=== PATIENT | female | born 1960 | race African-American/Black ===

== ENCOUNTER → 2017-06-01 | Outpatient (CLI) | payer OTHER ==
--- NOTE | 2017-06-01 16:03 | RAD ---
DATE: 06/01/2017 EXAM: MAMMO JAYRO SCREENING BILATERAL HISTORY: Routine screening COMPARISON: None available This study was interpreted with the benefit of Computerized Aided Detection (CAD). The breast parenchyma shows scattered fibroglandular densities. Breast parenchyma level B. FINDINGS: 2-D and 3-D imaging was performed in CC and MLO projections. There are several tiny smooth nodules in both breasts as best demonstrated on the tomograms. One of these nodules in the right breast at approximately the 12:00 location demonstrates microlobulated margins as best seen on CCA jayro image #45. This is located approximately 6 cm posterior to the nipple. This probably corresponds to a small nodular opacity seen on right oblique tomogram #50. No suspicious microcalcifications are seen. IMPRESSION: 1. Scattered small benign-appearing nodules in both breasts. 2. One nodule at the 12:00 location in the right breast demonstrates mildly suspicious margins. A targeted right breast ultrasound is suggested for further evaluation. BI-RADS CATEGORY: 0 INCOMPLETE: NEEDS ADDITIONAL IMAGING EVALUATION AND/OR PRIOR MAMMOGRAMS FOR COMPARISON. RECOMMENDED FOLLOW-UP: ADD ADDITIONAL IMAGING PQRS compliance statement: Patient information was entered into a reminder system with a target due date for the next mammogram. Mammography is a sensitive method for finding small breast cancers, but it does not detect them all and is not a substitute for careful clinical examination. A negative mammogram does not negate a clinically suspicious finding and should not result in delay in biopsying a clinically suspicious abnormality. "Our facility is accredited by the [employer] Mammography Program."
== END | disposition home or self-care (01) ==
LOC: MAMMO 14:54
PROVIDERS: ATTEND Nurse Practitioner Family
DX: Z12.31 Encounter for screening mammogram for malignant neoplasm of breast (principal); N63 Unspecified lump in breast
CPT/HCPCS: 77063; G0202; 77067

== ENCOUNTER → 2017-06-08 | Outpatient (CLI) | payer OTHER ==
--- NOTE | 2017-06-08 16:18 | RAD ---
Right breast ultrasound, 06/08/2017: History: Right breast nodule Previous mammograms demonstrated a microlobulated nodule in the right breast at the 12:00 location. A targeted ultrasound exam of that region demonstrates a 6 x 4 x 2 mm nodule approximate 6 cm from the nipple at the 12:00 location. It is wider than tall. There are some internal echoes. There is mild posterior acoustic enhancement. The appearance suggests a complicated cyst. This probably corresponds to the mammographic nodule, however, that cannot be stated with certainty. No highly suspicious nodule is seen in this region. IMPRESSION: Probably benign right breast nodule. Considering the presence of multiple bilateral nodules on the baseline mammograms, 3-D mammographic follow-up beginning in 6 months and then at yearly intervals is suggested to establish stability. BI-RADS 3-probably benign findings
== END | disposition home or self-care (01) ==
LOC: US 14:51
PROVIDERS: ATTEND Nurse Practitioner Family
DX: N63 Unspecified lump in breast (principal)
CPT/HCPCS: 76641

== ENCOUNTER 2017-12-25 15:35 | Emergency (ER) | payer OTHER ==
[~2017-12-25] VITALS: Ht 165.1 cm; Wt 96.2 kg
[2017-12-25 15:48] VITALS: BP 155/93
[2017-12-25] MEDS ORDERED: DICY20TA3 PO (16:14)
[2017-12-25] MEDS ORDERED: PROM25SU32 RC (16:14)
[2017-12-25] MEDS ORDERED: ONDA4TAB10 PO (16:14)
[2017-12-25] MEDS ORDERED: ONDANSETRON ODT 4 MG TAB.RAPDIS PO ONE (16:15)
[2017-12-25] MEDS ORDERED: DICYCLOMINE HCL 20 MG TABLET PO ONE (16:15)
--- NOTE | 2017-12-25 16:18 | PHYS DOC ---
General Chief Complaint: NAUSEA/VOMITING/DIARRHEA Stated Complaint: NAUSEA/VOMITING Time Seen by MD: 15:38 Source: patient Exam Limitations: no limitations Problems: History of Present Illness Initial Comments 57-year-old female comes to the ED "I have a stomach virus." Patient states that her son was seen at [facility] last week with gastroenteritis, she says last night she became achy and had several episodes of emesis and today has had a few episodes of emesis and loose watery stools. No blood in stools or emesis no travel or bad food exposure and no pre-arrival treatment. She's been achy but denies any fevers she would like some medications to stop vomiting. She's been able to hold liquids down and is willing to hydrate orally at home. Timing/Duration: 24 hours Severity: moderate Modifying Factors: worse with eating, improves with rest Associated Symptoms: diaphoresis, malaise, nausea/vomiting, other Allergies: Coded Allergies: No Known Drug Allergies (Unverified , 12/25/17) Past Medical History Medical History: diabetes, hypertension Surgical History: noncontributory Social History Smoker: cigarettes Alcohol: none Drugs: none Review of Systems Constitutional: see HPI Respiratory: denies cough, denies shortness of breath Cardiovascular: denies chest pain, denies palpitations Gastrointestinal: see HPI Genitourinary: denies dysuria, denies frequency, denies hematuria Musculoskeletal: see HPI Hematologic/Lymphatic: denies blood clots, denies easy bruising Physical Exam General Appearance: WD/WN, no apparent distress Eyes: bilateral eye normal inspection, bilateral eye PERRL, bilateral eye EOMI Ear, Nose, Throat: hearing grossly normal, normal ENT inspection, normal pharynx Neck: non-tender, supple Respiratory: normal breath sounds, no respiratory distress Cardiovascular: normal peripheral pulses, regular rate, rhythm Gastrointestinal: normal bowel sounds, non tender, soft, no organomegaly Back: no CVA tenderness, no vertebral tenderness Extremities: non-tender, normal inspection Neurologic/Psychiatric: alert, oriented x 3 Skin: normal color, warm/dry Orders, Labs, Meds I discussed signs and symptoms to monitor as well as indications for urgent return to the department. Discussed oral hydration prescription and over-the- counter medications and her questions were answered. She expressed agreement and understanding of treatment plan. Departure Time of Disposition: 16:15 Disposition: 01 HOME, SELF-CARE Diagnosis: gastroenteritis likely viral Condition: GOOD Patient Instructions: Viral Gastroenteritis, [id number] Additional Instructions: Off work through December 28. Aggressive hydration with Gatorade and water. Clear liquids today, advance diet slowly tomorrow as tolerated. [id number] Tylenol and ibuprofen as needed. Prescription: Zofran ODT, Phenergan suppository, dicyclomine Follow-up with your doctor in 5-7 days if not better. Return to ED with new or changing symptoms. DANNIE LUIS DO Dec 25, 2017 16:18
== END 2017-12-25 16:26 | disposition home or self-care (01) ==
LOC: ER 15:35
DX: K52.9 Noninfective gastroenteritis and colitis, unspecified (principal); I10 Essential (primary) hypertension; E11.9 Type 2 diabetes mellitus without complications; F17.210 Nicotine dependence, cigarettes, uncomplicated
CPT/HCPCS: 99283; Q0162

== ENCOUNTER → 2018-02-08 | Outpatient (CLI) | payer OTHER ==
[~2018-02-08] MED LIST: DICY20TA3 PO; ONDA4TAB10 PO; PROM25SU32 RC
--- NOTE | 2018-02-08 15:54 | RAD ---
DATE: 02/08/2018 EXAM: MAMMO JAYRO PHYLLISG RT, BREAST RIGHT HISTORY: Follow-up nodule COMPARISON: 06/01/2017 This study was interpreted with the benefit of Computerized Aided Detection (CAD). The breast parenchyma shows scattered fibroglandular densities. Breast parenchyma level B. FINDINGS: The small nodule seen at the 12:00 location in the right breast on the previous study is again identified, best seen on CC jayro image #41. It measures 6 mm and has shown no definite change in size. No new right breast opacities are seen. No suspicious microcalcifications are evident. Right breast ultrasound, 02/08/2018: A targeted ultrasound exam of the right breast was performed centered at the 12:00 location. Approximately 6 cm from the nipple at the 12:00 location there is a small partially cystic nodule. It currently measures 3-4 mm in greatest diameter. It is of similar size, or perhaps slightly smaller than on the 06/08/2017 exam. It is wider than tall and has a relatively benign appearance. On today's ultrasound study a second nodule was identified at the 11:00 location approximately 5 cm in the nipple. It is smooth and oval-shaped measuring 4 x 4 x 3 mm. There are low level internal echoes. The appearance suggests a complicated cyst or small fibroadenoma. IMPRESSION: 1. Stable right mammograms. 2. Probably benign small right breast nodules at 11:00 and 12:00. Follow-up targeted right breast ultrasound and bilateral mammography in 6 months is suggested. BI-RADS CATEGORY: 3 PROBABLY BENIGN FINDING(S)-SHORT INTERVAL FOLLOW-UP SUGGESTED RECOMMENDED FOLLOW-UP: 6M 6 MONTH FOLLOW-UP PQRS compliance statement: Patient information was entered into a reminder system with a target due date for the next mammogram. Mammography is a sensitive method for finding small breast cancers, but it does not detect them all and is not a substitute for careful clinical examination. A negative mammogram does not negate a clinically suspicious finding and should not result in delay in biopsying a clinically suspicious abnormality. "Our facility is accredited by the [employer] Mammography Program."
== END | disposition home or self-care (01) ==
LOC: MAMMO 13:58
PROVIDERS: ATTEND Nurse Practitioner Family
DX: N63.11 Unspecified lump in the right breast, upper outer quadrant (principal); I10 Essential (primary) hypertension; E11.9 Type 2 diabetes mellitus without complications
CPT/HCPCS: 76641; 77065; G0279; 77061